=== PATIENT | male | born 1995 ===

== ENCOUNTER 2016-12-31 14:00 | Emergency (ER) | payer MEDICARE ==
[~2016-12-31] VITALS: Ht 162.6 cm; Wt 81.6 kg
== END 2016-12-31 15:35 | disposition home or self-care (01) ==
LOC: CED 14:00 → CFTX 14:00
DX: S20.362A Insect bite (nonvenomous) of left front wall of thorax, initial encounter (principal); F17.210 Nicotine dependence, cigarettes, uncomplicated; W57.XXXA Bitten or stung by nonvenomous insect and other nonvenomous arthropods, initial encounter; Y92.009 Unspecified place in unspecified non-institutional (private) residence as the place of occurrence of the external cause
CPT/HCPCS: 99282